=== PATIENT | male | born 1955 | race Caucasian/White ===

== ENCOUNTER 2017-02-27 21:05 | Emergency (ER) | payer SELFPAY ==
[~2017-02-27] VITALS: Ht 188 cm; Wt 95.1 kg
[2017-02-27] MEDS ORDERED: HYDROmorphone 1 MG/ML, 1ML IVPush PRN (21:30)
[2017-02-27] MEDS ORDERED: KETOROLAC 30 MG/1 ML IVPush ONE (21:30)
[2017-02-27] MEDS ORDERED: ONDANSETRON 2MG/ML, 2ML IVPush ONE (21:30)
[2017-02-27 21:50] LABS: ASPARTATE AMINO TRANSFERASE 23 U/L (15-37); BLOOD UREA NITROGEN 11 mg/dL (7-18)
[2017-02-27] MEDS ORDERED: KETOROLAC 30 MG/1 ML ONE (21:54)
[2017-02-27] MEDS ORDERED: ONDANSETRON 2MG/ML, 2ML ONE (21:54)
[2017-02-27] MEDS ORDERED: HYDROmorphone 1 MG/ML, 1ML ONE (22:26)
[2017-02-27 23:40] VITALS: BP 128/68
== END 2017-02-27 23:45 | disposition home or self-care (01) ==
LOC: ED 22:17
DX: N13.2 Hydronephrosis with renal and ureteral calculous obstruction (principal); R31.9 Hematuria, unspecified
CPT/HCPCS: 36415; 74176; 80053; 81001; 83690; 85025; 96374; 96375; 99285; J1170; J1885; J2405